=== PATIENT | male | born 1985 | race Caucasian/White ===

== ENCOUNTER 2017-03-19 12:12 | Emergency (ER) | payer SELFPAY ==
[2017-03-19] MEDS ORDERED: Sodium Chloride 0.9% 1,000 ML IV ONE (12:41)
[2017-03-19] MEDS ORDERED: Ondansetron 4 MG/2 ML SDV IVPUSH ONE (12:43)
[2017-03-19] MEDS ORDERED: Ketorolac 30 MG/ML SDV IVPUSH ONE (12:43)
[2017-03-19 13:21] LABS: CHLORIDE,CL 107 mmol/L (98-110); SODIUM,NA 141 mmol/L (136-146)
--- NOTE | 2017-03-19 13:57 | EDM.PDOC ---
ED HPI GENERAL MEDICAL PROBLEM - General Chief Complaint: Gastrointestinal Problem Stated Complaint: FOOD POISONING Time Seen by Provider: 03/19/17 12:40 Source of Information: Reports: Patient History Limitations: Reports: No Limitations - History of Present Illness INITIAL COMMENTS - FREE TEXT/NARRATIVE: History of present illness: [31-year-old male comes in complaining of nausea. Indicates he thinks he may have some level of the poisoning] Review of systems: As per history of present illness and below otherwise all systems reviewed and negative. Past medical history: As per history of present illness and as reviewed below otherwise noncontributory. Surgical history: As per history of present illness and as reviewed below otherwise noncontributory. Social history: No reported history of drug or alcohol abuse. Family history: As per history of present illness and as reviewed below otherwise noncontributory. Physical exam: HEENT: Atraumatic, normocephalic, pupils reactive, negative for conjunctival pallor or scleral icterus, mucous membranes moist, throat clear, neck supple, nontender, trachea midline. Lungs: Clear to auscultation, breath sounds equal bilaterally, chest nontender. Heart: S1S2, regular, negative for clicks, rubs, or JVD. Abdomen: Soft, nondistended, nontender. Negative for masses or hepatosplenomegaly. Negative for costovertebral tenderness. Pelvis: Stable nontender. Genitourinary: Deferred. Rectal: Deferred. Extremities: Atraumatic, negative for cords or calf pain. Neurovascular unremarkable. Neuro: Awake, alert, oriented. Cranial nerves II through XII unremarkable. Cerebellum unremarkable. Motor and sensory unremarkable throughout. Exam nonfocal. Assessment is benign save stated complaint of nausea and historical vomiting. Under well to treatment here in the ER without any vomiting during his approximate her stay. Diagnostics: [CBC, CMP] Therapeutics: [] Impression: [Nausea, history of vomiting] Plan: [Zofran for home] Definitive disposition and diagnosis as appropriate pending reevaluation and review of above. Abdominal Pain Score (Numeric/FACES): 7 - Related Data Allergies Allergy/AdvReac Type Severity Reaction Status Date / Time No Known Allergies Allergy Verified 03/19/17 12:23 Home Meds: Home Meds Ondansetron [Zofran Odt] 8 mg PO Q6H PRN #30 tab.rapdis 03/19/17 [Rx] Past Medical History - Past Health History Medical/Surgical History: Denies Medical/Surgical History HEENT History: Reports: None Cardiovascular History: Reports: None Respiratory History: Reports: None Gastrointestinal History: Reports: None Genitourinary History: Reports: None Musculoskeletal History: Reports: None Neurological History: Reports: None Psychiatric History: Reports: None Endocrine/Metabolic History: Reports: None Hematologic History: Reports: None Immunologic History: Reports: None Oncologic (Cancer) History: Reports: None Dermatologic History: Reports: None - Past Surgical History Head Surgeries/Procedures: Reports: None Social & Family History - Family History Family Medical History: Noncontributory - Tobacco Use Smoking Status *Q: Former Smoker Used Tobacco, but Quit: Yes Month Tobacco Last Used: 2011 - Caffeine Use Caffeine Use: Reports: Coffee - Recreational Drug Use Recreational Drug Use: No ED ROS GENERAL - Review of Systems Review Of Systems: See Below (History of present illness) ED EXAM, GENERAL - Physical Exam Exam: See Below (C.) Exam Limited By: No Limitations Course - Vital Signs Last Recorded V/S: Last Vital Signs Temp 36.7 C 03/19/17 12:17 Pulse 94 03/19/17 12:17 Resp 14 03/19/17 12:17 BP 129/84 03/19/17 12:17 Pulse Ox 96 03/19/17 12:17 - Orders/Labs/Meds Labs: Laboratory Tests 03/19/17 03/19/17 Range/Units 12:43 12:43 WBC 7.16 (4.0-11.0) K/uL RBC 5.37 (4.50-5.90) M/uL Hgb 16.1 (13.0-17.0) g/dL Hct 45.8 (38.0-50.0) % MCV 85.3 (80.0-98.0) fL MCH 30.0 (27.0-32.0) pg MCHC 35.2 (31.0-37.0) g/dL RDW Std Deviation 38.1 (28.0-62.0) fl RDW Coeff of Bhaskar 12 (11.0-15.0) % Plt Count 210 (150-400) K/uL MPV 9.90 (7.40-12.00) fL Neut % (Auto) 83.6 H (48.0-80.0) % Lymph % (Auto) 9.1 L (16.0-40.0) % [place] % (Auto) 6.6 (0.0-15.0) % Eos % (Auto) 0.6 (0.0-7.0) % Baso % (Auto) 0.1 (0.0-1.5) % Neut # (Auto) 6.0 H (1.4-5.7) K/uL Lymph # (Auto) 0.7 (0.6-2.4) K/uL [place] # (Auto) 0.5 (0.0-0.8) K/uL Eos # (Auto) 0.0 (0.0-0.7) K/uL Baso # (Auto) 0.0 (0.0-0.1) K/uL Nucleated RBC % 0.0 /100WBC Nucleated RBCs # 0 K/uL Sodium 141 (136-146) mmol/L Potassium 4.2 (3.5-5.1) mmol/L Chloride 107 (98-110) mmol/L Carbon Dioxide 25 (21-31) mmol/L BUN 13 (6.0-23.0) mg/dL Creatinine 1.0 (0.6-1.5) mg/dL Est Cr Clr Drug Dosing 111.53 mL/min Estimated GFR (MDRD) > 60.0 ml/min Glucose 104 (60-110) mg/dL Calcium 9.2 (8.8-10.8) mg/dL Total Bilirubin 0.8 (0.1-1.5) mg/dL AST 19 (5-40) IU/L ALT 16 (8-54) IU/L Alkaline Phosphatase 94 (40-150) Total Protein 7.6 (6.0-8.0) g/dL Albumin 4.7 (3.5-5.0) g/dL Globulin 2.9 (2.0-3.5) g/dL Albumin/Globulin Ratio 1.6 (1.3-2.8) Meds: Medications Discontinued Medications Generic Name Dose Route Start Last Admin Trade Name Freq PRN Reason Stop Dose Admin Sodium Chloride 1,000 mls @ 999 mls/hr 03/19/17 12:41 03/19/17 12:50 Normal Saline IV 05/27/17 13:41 999 mls/hr STAT ONE Administration Ketorolac Tromethamine 30 mg 03/19/17 12:43 03/19/17 12:52 Toradol IVPUSH 03/19/17 12:44 30 mg ONETIME ONE Administration Ondansetron HCl 8 mg 03/19/17 12:43 03/19/17 12:52 Zofran IVPUSH 03/19/17 12:44 8 mg ONETIME ONE Administration Departure - Departure Time of Disposition: 13:56 Disposition: Home, Self-Care 01 Condition: good Clinical Impression: Vomiting - Discharge Information Prescriptions: Ondansetron [Zofran Odt] 8 mg PO Q6H PRN #30 tab.rapdis PRN Reason: Nausea Instructions: Nausea and Vomiting, Adult, [id number] Forms: ED Department Discharge Additional Instructions: The following information is given to patients seen in the emergency department who are being discharged to home. This information is to outline your options for follow-up care. We provide all patients seen in our emergency department with a follow-up referral. The need for follow-up, as well as the timing and circumstances, are variable depending upon the specifics of your emergency department visit. If you don't have a primary care physician on staff, we will provide you with a referral. We always advise you to contact your personal physician following an emergency department visit to inform them of the circumstance of the visit and for follow-up with them and/or the need for any referrals to a consulting specialist. The emergency department will also refer you to a specialist when appropriate. This referral assures that you have the opportunity for follow-up care with a specialist. All of these measure are taken in an effort to provide you with optimal care, which includes your follow-up. Under all circumstances we always encourage you to contact your private physician who remains a resource for coordinating your care. When calling for follow-up care, please make the office aware that this follow-up is from your recent emergency room visit. If for any reason you are refused follow-up, please contact the [facility] Emergency Department at and asked to speak to the emergency department charge nurse. Been provided Zofran as needed for nausea Consider clear liquid diet for the next 24 hours slowly advance diet as tolerated over the next 72 hours this would include anxiety bananas rice applesauce and toast Followup with PCP 1-2 days return to ED as needed as discussed
[2017-03-19 14:07] VITALS: BP 137/84
== END 2017-03-19 14:09 | disposition home or self-care (01) ==
LOC: MW.ED 12:12
DX: R11.10 Vomiting, unspecified (principal); Z87.891 Personal history of nicotine dependence
CPT/HCPCS: 36415; 80053; 85025; 96361; 96374; 96375; 99283; J1885; J2405; J7040

== ENCOUNTER 2018-12-04 16:45 | Emergency (ER) | payer OTHER ==
[2018-12-04] MEDS ORDERED: Lidocaine/EPINEPHrine/Tetracaine Soln 1 ML TOP ONE (17:11)
[2018-12-04] MEDS ORDERED: Diphtheria,Pertussis(Acell),Tetanus Vaccine 0.5 ML Syringe IM ONE ×2 (17:11→17:42)
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
[2018-12-04 18:10] VITALS: BP 140/105
== END 2018-12-04 18:12 | disposition home or self-care (01) ==
LOC: MW.ED 16:45
DX: S01.01XA Laceration without foreign body of scalp, initial encounter (principal); Z23 Encounter for immunization; V49.40XA Driver injured in collision with unspecified motor vehicles in traffic accident, initial encounter
CPT/HCPCS: 12001; 90471; 90715; 99282; 99283-25

== ENCOUNTER 2020-05-08 19:40 | Emergency (ER) | payer OTHER ==
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
[2020-05-08] MEDS ORDERED: Ondansetron 4 MG/2 ML SDV IVPUSH ONE (19:54)
[2020-05-08] MEDS ORDERED: Morphine 4 MG/ML Syringe IVPUSH ONE ×3 (19:54→22:14)
[2020-05-08] MEDS ORDERED: Lactated Ringers 1,000 ML IV ONE (19:54)
--- NOTE | 2020-05-08 20:14 | CR ---
Chest: Portable view of the chest was obtained. Comparison: No previous study. Slightly comminuted clavicular shaft fracture is seen. Heart size and mediastinum are normal. Lungs show no acute parenchymal change. No other discrete bony abnormality is appreciated. Impression: 1. Right clavicle fracture. 2. No other acute finding is seen on portable chest x-ray. Diagnostic code #3 This report was dictated in MDT
--- NOTE | 2020-05-08 20:27 | CT ---
CT cervical spine Technique: Multiple axial sections were obtained of the cervical spine from above C1 inferiorly to the mid T2 level. Reconstructed sagittal and coronal images were reviewed. Findings: Slight mucosal thickening is seen inferiorly within the right mastoid sinus. Vertebral body heights and disc spaces are maintained. No fracture is seen. No bony central or bony neural foraminal. No abnormal subluxation is appreciated. Impression: 1. Nothing acute is appreciated on CT study of the cervical spine. 2. Slight mucosal thickening inferiorly within the right mastoid sinus most likely pre-existing. Diagnostic code #2 This report was dictated in MDT
--- NOTE | 2020-05-08 20:27 | CT ---
Head CT Technique: Multiple axial sections through the brain were obtained. Intravenous contrast was not utilized. Comparison: No prior intracranial imaging is available. Findings: Ventricles along with basal cisterns and sulci over the convexities are within normal limits for the patient's age. No abnormal parenchymal densities are seen. No evidence of intracranial hemorrhage. No midline shift or mass-effect is seen. Bone window settings were reviewed. Minimal mucosal thickening is noted within the inferior mass axillary sinuses. Mild mucosal thickening is seen within the ethmoid sinuses. No air-fluid levels are seen. Slight mucosal thickening is seen inferiorly within the right mastoid sinus. Other mastoid sinuses show nothing acute. No acute calvarial finding is seen. Impression: 1. Slight sinus findings as well as minimal right mastoid sinus findings. These are felt to be a pre-existing and chronic. 2. No acute intracranial abnormality is appreciated. Diagnostic code #2 This report was dictated in MDT
[2020-05-08 20:34] LABS: BLOOD UREA NITROGEN,BUN 16 mg/dL (7.0-18.0); CARBON DIOXIDE,CO2 21.8 mmol/L (21.0-32.0); CHLORIDE,CL 109 mmol/L (98-107); GLUCOSE RANDOM 110 mg/dL (74-106); SODIUM,NA 145 mmol/L (136-148)
--- NOTE | 2020-05-08 20:45 | CT ---
CT abdomen and pelvis Technique: Multiple axial sections were obtained from above the dome of the diaphragm inferiorly through the pubic symphysis. Intravenous contrast was utilized. No oral contrast has been given. Limitation: Patient's right arm along the side which causes some artifact within the upper abdomen. Comparison: No prior abdominal imaging is available. Findings: Visualized lung bases shows slight right basilar atelectasis. No focal abnormality is appreciated within the liver. Spleen appears within normal limits. Adrenal glands show no nodule. Kidneys show symmetric contrast enhancement without hydronephrosis or mass. Pancreas is within normal limits. Gallbladder contains no calcified gallstones. Aorta shows no aneurysm. No retroperitoneal adenopathy or mesenteric abnormalities are seen. Appendix is seen which is normal in size. No pelvic mass or adenopathy is noted. Small bilateral fat-containing inguinal hernias are noted. Bone window settings were reviewed which shows no acute osseous finding. Impression: 1. Nothing acute is appreciated on CT study of the abdomen and pelvis. Diagnostic code #1 This report was dictated in MDT
[2020-05-08] MEDS ORDERED: Iopamidol 755 Mg/ML 100 ML Bottle IVPUSH STA (21:01)
[2020-05-08 21:24] VITALS: BP 167/81; PULSE 97
[2020-05-08] MEDS ORDERED: Morphine 4 MG/ML Syringe ONE (22:14)
== END 2020-05-08 22:38 | disposition home or self-care (01) ==
LOC: MW.ED 19:40
DX: S42.021A Displaced fracture of shaft of right clavicle, initial encounter for closed fracture (principal); V86.59XA Driver of other special all-terrain or other off-road motor vehicle injured in nontraffic accident, initial encounter
CPT/HCPCS: 36415; 70450; 71045; 72125; 74177; 80053; 80305; 80307; 81003; 85025; 85610; 93005; 96374; 96375; 96376; 99284; J2270; J2405; J7120; Q9967; 29125; 99283

== ENCOUNTER 2022-08-14 06:22 | Emergency (ER) | payer OTHER ==
[2022-08-14] MEDS ORDERED: Azithromycin 250 MG Tab PO ONE (06:37)
[2022-08-14] MEDS ORDERED: Ibuprofen 600 MG Tab PO ONE (06:37)
[2022-08-14 06:43] VITALS: BP 147/96; PULSE 104
== END 2022-08-14 06:50 | disposition home or self-care (01) ==
LOC: MW.ED 06:22
DX: H66.91 Otitis media, unspecified, right ear (principal); Z79.899 Other long term (current) drug therapy
CPT/HCPCS: 99282; A9270